=== PATIENT | female | born 1995 | race Caucasian/White ===

== ENCOUNTER 2019-11-24 20:16 | Emergency (ER) | payer OTHER, SELFPAY ==
[2019-11-24 20:20] VITALS: BP 154/87; PULSE 89; RESP 20; TEMP 36.4; O2SAT 98
--- NOTE | 2019-11-24 20:33 | ED.URI ---
HPI - URI/Sore Throat General Chief Complaint: Upper Respiratory Infection Stated Complaint: cough,sore throat, headache Time Seen by Provider: 11/24/19 20:34 Source: patient and family Mode of arrival: ambulatory Limitations: no limitations History of Present Illness HPI Narrative: A 24-year-old woman comes in today complaining of cough, sore throat, headache and some intermittent mild shortness of breath. Patient states her symptoms started early this morning. She has had no fever, nausea, vomiting, rash. He states 1 of her friends was recently diagnosed with a URI in an emergency department. She has otherwise had no travel, sick exposures, or exposure to travelers. She has no history of smoking or lung disease. MD elicited complaint: cough and sore throat Onset (ago): day(s) (1) Consistency: constant Severity: moderate Description of mucous: clear Able to tolerate fluids by mouth: Yes Exacerbating factors: nothing Relieving factors: nothing Context: sick contacts and other(s) with similar symptoms Associated symptoms: headache, sore throat, cough and shortness of breath ( Intermittently) Treatments prior to arrival: none Related Data Home Medications Medication Instructions Recorded Confirmed levetiracetam [Keppra] 1,500 mg PO BID 08/23/19 08/23/19 Allergies Allergy/AdvReac Type Severity Reaction Status Date / Time No Known Allergies Allergy Verified 08/23/19 17:31 Review of Systems Constitutional: Constitutional: Denies chills, Denies fatigue, Denies fever(s) and Denies weakness Eyes: Eyes: Denies change in vision and Denies photophobia ENT: Denies dysphagia, Denies nasal congestion and Reports sore throat Cardiovascular: Cardiovascular: Denies chest pain and Denies radiating jaw, neck or arm pain Respiratory: Respiratory: Reports cough, Denies dyspnea and Denies wheezing Gastrointestinal: Gastrointestinal: Denies abdominal pain, Denies diarrhea, Denies nausea and Denies vomiting Musculoskeletal: Musculoskeletal: Denies myalgias, Denies arthralgias and Denies joint swelling Integumentary/Breasts: Skin/Breast: Denies pruritus, Denies erythema and Denies rash Neurologic: Denies vertigo, Denies dizziness and Denies syncope Hematologic/Lymphatic: Hematologic/Lymphatic: Denies easy bleeding and Denies easy bruising Allergic/Immunologic: Allergic/Immunologic: Denies lip swelling and Denies wheezing PMFSH Past Medical History Medical History Obesity Seizures Shoulder dislocation, recurrent Surgical History Surgical History Hx of ventricular septal defect repair Family History Family History (Updated 08/23/19 @ 17:47 by Bala Chaudhry MD) Mother Diabetes mellitus Father Diabetes mellitus Social History Social History (Updated 11/24/19 @ 20:42 by Rico Christensen MD) Additional smoking assessment comments: denies smoking Alcohol use details: occasional Substance use: current Substance use type: marijuana Exam Const: General: healthy appearing, no acute distress and alert Nutritional Appearance: obese Orientation/consciousness: patient oriented x3 HENMT: Ears: external ears normal, TM's normal bilaterally and EAC's normal Mouth: Yes Normal oral and palatal mucosa present and Yes moist mucous membranes Throat: uvula midline Other: mild diffuse pharyngeal erythema without masses, swelling or exudate. Eyes: Conjunctivae: conjunctivae normal Pupils: Equal, round and reactive pupils present EOM: EOMs intact bilaterally Neck: Neck: no lymphadenopathy Resp: Effort & Inspection: normal respiratory effort and not labored Auscultation: clear to auscultation bilaterally, no rales, no rhonchi and no wheezes Cardio: Rate: regular rate Rhythm: regular rhythm Heart sounds: no murmurs Skin: General skin exam: normal color, no jaundice and no pallor Rash
[2019-11-24 20:50] LABS: Influenza Control Valid (Valid)
[2019-11-24 21:00] VITALS: TEMP 36.4
== END 2019-11-24 21:01 | disposition home or self-care (01) ==
PROVIDERS: Emergency Provider Emergency Medicine; PCP Physician Assistant
DX: J06.9 Acute upper respiratory infection, unspecified (principal)
CPT/HCPCS: 87081; 87804; 87880; 99282; 99283

== ENCOUNTER 2019-12-09 18:15 | Emergency (ER) | payer OTHER, SELFPAY ==
[2019-12-09] VITALS (13 sets, daily range): BP systolic 106–141; BP diastolic 62–86; PULSE 66–97; RESP 14–20; TEMP 36.6; O2SAT 97–100
--- NOTE | ~2019-12-09 | XR_ITS ---
XR shoulder RT min 2V 12/09/2019 18:42 Indication: Right shoulder pain. Possible dislocation. History of prior dislocation. Procedure: 3 views right shoulder Comparison: 08/23/2019 Findings: There is a right anterior shoulder dislocation. No acute fracture is identified. Visualized lung parenchyma unremarkable. No significant soft tissue abnormality. Impression: 1: Right anterior shoulder dislocation. Reviewed, dictated and finalized at location A. Impression: 1: Right anterior shoulder dislocation.
--- NOTE | ~2019-12-09 | XR_ITS ---
XR shoulder RT min 2V 12/09/2019 21:52 Indication: Right shoulder dislocation Procedure: 2 views right shoulder Comparison: 12/09/2019 Findings: There is anatomic alignment of the right shoulder post reduction. There is deformity of the humeral h ead suggesting Hill-Sachs fracture deformity from previous dislocation. No acute fractures identified . Impression: 1: Anatomic alignment of the right shoulder post reduction. Reviewed, dictated and finalized at location A. Impression: 1: Anatomic alignment of the right shoulder post reduction.
[2019-12-09] MEDS: MORPHINE SULFATE 4 MG/ML INJ IV PUSH (18:36)
--- NOTE | 2019-12-09 19:00 | PC.NURSE ---
ERP AT BEDSIDE TO ATTEMPT REDUCTION WITHOUT SEDATION - UNSUCCESSFUL - PT TEARFUL AND UNABLE TO TOLERATE PROCEDURE - PT ASKING MULTIPLE TIMES TO BE SEDATED
--- NOTE | 2019-12-09 19:29 | PC.NURSE ---
ERP AT BEDSIDE TO INJECT 10 ML LIDOCAINE INTO POSTERIOR SHOULDER - PT REMAINS TEARFUL - COMFORT AND REASSURANCE PROVIDED
--- NOTE | 2019-12-09 20:49 | PC.NURSE ---
ATTEMPT AT REDUCTION IS UNSUCCESSFUL - CALL PLACED TO [facility]
--- NOTE | 2019-12-09 21:05 | PC.NURSE ---
1955 - TORADOL 30 MG GIVEN IVP LH 1954 - FENTANYL 100 MCG GIVEN IVP LH 1957 - VERSED 2 MG GIVEN IVP LH 2001 - VERSED 2 MG GIVEN IVP LH 2007 - VERSED 2 MG GIVEN IVP LH 2011 - VERSED 2 MG GIVEN IVP LH SEE SEDATION DOCUMENTATION
--- NOTE | 2019-12-09 21:09 | ED.UPPEXIN ---
HPI - Extremity Injury (Upper) General Chief Complaint: Extremity Injury, Upper Stated Complaint: rt shoulder pain Source: patient Mode of arrival: EMS Limitations: no limitations History of Present Illness HPI narrative: This 24-year-old female comes in with right shoulder dislocation which occurred approximately 60 minutes ago. She has a history of about 8 previous dislocation which have required IV analgesics and sedation to reduce. She complains of severe right shoulder pain. Denies numbness tingling or weakness in the right deltoid/hand. She denies pain with last reduction when she received Fentanyl 100 ug, Toradol 30 mg IV, Versed 8 mg bolus. Related Data Home Medications Medication Instructions Recorded Confirmed levetiracetam [Keppra] 1,500 mg PO BID 08/23/19 12/09/19 Allergies Allergy/AdvReac Type Severity Reaction Status Date / Time No Known Allergies Allergy Verified 08/23/19 17:31 Review of Systems Constitutional: Constitutional: Reports no additional constitutional complaints Neurologic: Denies focal weakness and Denies numbness Psychiatric: Comments: denies hx of chronic pain PMFSH Past Medical History Medical History Obesity Seizures Shoulder dislocation, recurrent Surgical History Surgical History Hx of ventricular septal defect repair Family History Family History Mother Diabetes mellitus Father Diabetes mellitus Social History Social History (Updated 11/24/19 @ 20:42 by Rico Christensen MD) Additional smoking assessment comments: denies smoking Substance use: current Substance use type: marijuana Exam Neuro: General: other ( No decreased sensation in the right deltoid and right hand region. Briana) Extrem: Left upper extremity: abnormal to inspection ( Prominence of the right anterior subacromial region ) Other: Right arm is adducted and internally rotated. ANY movement is very paiful. Psych: Affect: Anxious affect present Other: Guarding of right shoulder and arm. Pt anxious; wants to get knocked out, like before. Very concerned about the pain if reduction is attempted without adequate sedation/analgesia. Course Course Emergency Course: Pain relief after reduction techniques. X ray confirms reduction. Pt advised to follow up for physical therapy, wear sling until pain subsides, avoid full abduction with external rotation. Vital Signs Vital signs: Vital Signs Temperature 36.6 C 12/09/19 18:41 Pulse Rate 80 12/09/19 18:41 Respiratory Rate 20 12/09/19 18:41 Blood Pressure 134/81 12/09/19 18:41 Pulse Oximetry 98 12/09/19 18:41 Temperature 36.6 C 12/09/19 18:41 Pulse Rate 74 12/09/19 22:24 Respiratory Rate 16 12/09/19 22:24 Blood Pressure 111/67 12/09/19 21:59 Pulse Oximetry 97 12/09/19 22:24 Procedures Other Procedure Procedure 1: Other Procedure: patient was given 100 mcg fentanyl, 30 mg of Toradol, a total of 8 mg of Versed. After external rotation pt had no obvious reduction but much less pain with Milch technique, scapular manipulation and traction/countertraction over 35 minutes. Follow up X ray showed a reduction. MDM - Extremity Injury (Upper) MDM Narrative Medical decision making narrative: Anterior dislocation confirmed on X ray. Follow up X ray confirmed reduction of dislocation. Differential Diagnosis Differential diagnosis: Likely dislocation of shoulder and fracture of humerus Medical Records Attestation: I reviewed the patient's medical records. Imaging Data Radiologist's impression: mpression: 1: Right anterior shoulder dislocation. Impression: 1: Anatomic alignment of the right shoulder post reduction. Discharge Plan Discharge Clinical Impression: Recurrent anterior dislocation of right shoulder Patient Dispo
--- NOTE | 2019-12-09 21:55 | PC.NURSE ---
[facility] CALLS BACK, THEY STATE SHE SHOULD GO TO [facility] WHERE SHE HAS SEEN ORTHO IN THE PAST
== END 2019-12-09 22:24 | disposition home or self-care (01) ==
PROVIDERS: Emergency Provider Family Medicine; PCP Physician Assistant
DX: S43.004A Unspecified dislocation of right shoulder joint, initial encounter (principal)
CPT/HCPCS: 23650; 73030; 96374; 99283; 99285; A4565; J1885; J2250; J2270; J2405; J3010; J7030